=== PATIENT | male | born 1985 | race African-American/Black ===

== ENCOUNTER 2016-11-03 19:57 | Emergency (ER) | payer OTHER ==
--- NOTE | ~2016-11-03 | CR181 ---
[facility] A Service of [facility] & [facility] RADIOLOGY TEXT RESULTS PATIENT: ELVIS IBARRA LOCATION: [facility] : [birth year] UNIT #: [id number] AGE: [address]: Russ Kate SEX: M ORDER DR: [id number] [facility] [address] [place], [place] [address] [id number] MR#: [id number] Acc #: [id number] NAME: ELVIS IBARRA : 1985 SEX: M STUDY DATE/TIME: 11/03/2016 21:15 UNIT: [facility] ROOM: STUDY DESCRIPTION: CR Lumbar Spine 2 or 3 Views Attending Physician: Russ Kate P.A.-C. Ordering Physician: Russ Kate P.A.-C. Primary Care Physician: Primary Care Physician No MEDICAL IMAGING REPORT This report is preliminary unless electronic signature is present EXAM Lumbar spine series, 3 views, 11/03/2016 COMPARISON None HISTORY Back pain today. No known injury. FINDINGS Normal. Dictated by... Ryan Santa M.D. THIS IS AN ELECTRONICALLY VERIFIED REPORT Ryan Santa M.D. at 11/11/2016 4:56 PM TEV/psc TD: 11/04/2016 03:49 JOB #: [id number] MEDICAL IMAGING REPORT Page 1 of 1 COPY
--- NOTE | ~2016-11-03 | CR58 ---
[facility] A Service of [facility] & [facility] RADIOLOGY TEXT RESULTS PATIENT: ELVIS IBARRA LOCATION: [facility] : 83 UNIT #: [id number] AGE: [address]: Russ Kate SEX: M ORDER DR: [id number] [facility] [address] [place], [place] [address] [id number] MR#: [id number] Acc #: [id number] NAME: ELVIS IBARRA : 1985 SEX: M STUDY DATE/TIME: 11/03/2016 21:11 UNIT: [facility] ROOM: STUDY DESCRIPTION: CR Cervical Spine 2 or 3 Views Attending Physician: Russ Kate P.A.-C. Ordering Physician: Russ Kate P.A.-C. Primary Care Physician: Primary Care Physician No MEDICAL IMAGING REPORT This report is preliminary unless electronic signature is present EXAM Cervical spine series, 5 views, 11/03/2016 HISTORY Neck pain today. No known injury. FINDINGS Normal. Dictated by... Ryan Santa M.D. THIS IS AN ELECTRONICALLY VERIFIED REPORT Ryan Santa M.D. at 11/11/2016 4:56 PM TEV/psc TD: 11/04/2016 03:49 JOB #: [id number] MEDICAL IMAGING REPORT Page 1 of 1 COPY
== END 2016-11-03 22:15 | disposition home or self-care (01) ==
LOC: CED 19:57 → CFTX 19:57
DX: S13.4XXA Sprain of ligaments of cervical spine, initial encounter (principal); S33.5XXA Sprain of ligaments of lumbar spine, initial encounter; V43.52XA Car driver injured in collision with other type car in traffic accident, initial encounter
CPT/HCPCS: 72040; 72100; 99284